=== PATIENT | male | born 1995 | race Caucasian/White ===

== ENCOUNTER 2017-04-14 07:04 | Emergency (ER) | payer MEDICAID, OTHER ==
[2017-04-14] MEDS: DIPHTH/TET/ACEL PERTUSS (ADULT) 0.5 ML VIAL IM* (09:08)
== END 2017-04-14 11:11 | disposition home or self-care (01) ==
LOC: FTE 07:04
DX: S01.21XA Laceration without foreign body of nose, initial encounter (principal); J45.909 Unspecified asthma, uncomplicated; R51 Headache; Y08.89XA Assault by other specified means, initial encounter; Z23 Encounter for immunization
CPT/HCPCS: 12011; 70450; 70486; 71045; 72125; 73060; 90471; 90715; 99285-25